=== PATIENT | male | born 1935 | race Caucasian/White ===

== ENCOUNTER 2020-05-09 18:44 | Inpatient (IN) | payer OTHER ==
[~2020-05-09] VITALS: Ht 172.7 cm; Wt 77.1 kg
[2020-05-09 19:19] LABS: Basophils # (auto) 0.1 10 ^3/uL (0-0.2); Basophils % (auto) 0.9 % (0.0-2.0); Eosinophils # (auto) 0.4 10 ^3/uL (0-0.8); Hemoglobin 11.1 g/dL (13.5-17.5); Mean Corpuscular Hemoglobin 34.5 pg (28.0-32.0); White Blood Cell 8.3 10^3/uL (4.4-10.8)
[2020-05-09 19:21] LABS: Eosinophils % (auto) 4.4 % (0.0-7.0); Hematocrit 32.5 % (41.0-53.0); Lymphocytes # (auto) 1.6 10 ^3/uL (0.4-5.4); Lymphocytes % (auto) 18.6 % (10.0-50.0); Mean Corpuscular Volume 101.4 fL (80.0-100.0); Monocytes # (auto) 0.9 10 ^3/uL (0-1.3); Monocytes % (auto) 11.3 % (0.0-12.0); Neutrophils # (auto) 5.4 10 ^3/uL (1.6-8.6); Neutrophils % (auto) 64.8 % (37.0-80.0); Nucleated Red Blood Cells % 0.2 %; Platelet Count (auto) 251 10^3/uL (140-450); Red Blood Cells 3.21 10^6/uL (4.5-5.90); Red Cell Distribution Width 17.1 % (11.8-14.3)
[2020-05-09] MEDS ORDERED: SODIUM CHLORIDE 0.9% 1,000 ML IVB ONE (20:00)
[2020-05-09 20:09] LABS: Albumin 3.3 g/dL (3.4-5.0); Anion Gap 3 (5-15); Blood Urea Nitrogen 20 mg/dL (7-18); Calcium 8.3 mg/dL (8.5-10.1); Carbon Dioxide 30 mmol/L (21-32); Chloride 107 mmol/L (98-107); Glucose 89 mg/dL (74-106); Potassium 4.2 mmol/L (3.5-5.1); Sodium 140 mmol/L (136-145)
[2020-05-09 20:17] LABS: Alanine Aminotransferase 17 U/L (16-61); Alkaline Phosphatase 64 U/L (45-117); Aspartate Aminotransferase 12 U/L (15-37); BUN/Creatinine Ratio 17.9; Bilirubin, Total 0.5 mg/dL (0.2-1.0); Blood Alcohol < 3.0 mg/dL (0-5); GFR African American 80 mL/min; GFR Non-African American 66 mL/min; Total Protein 6.6 g/dL (6.4-8.2)
[2020-05-09 20:32] LABS: INR 1.06 (0.9-1.15); Partial Thromboplastin Time 28.7 sec (23.0-31.2)
[2020-05-10 03:26] LABS: Urine Bacteria FEW /hpf (None Seen); Urine Blood Negative /uL (Negative); Urine Mucus FEW (None Seen); Urine Specific Gravity 1.021 (1.001-1.035); Urine WBC 2 /hpf (0 - 3)
[2020-05-10] MEDS ORDERED: HYDROcodone-ACET 5/325MG TAB PO PRN (09:00)
[2020-05-10] MEDS ORDERED: MORPHINE SULF INJ 2 MG/ML SYRINGE 1ML IV PRN (09:00)
[2020-05-10] MEDS ORDERED: ACETAMINOPHEN 500 MG TAB PO PRN (09:00)
[2020-05-10] MEDS ORDERED: ONDANSETRON HCL 4 MG/2 ML VIAL IV PRN (09:00)
[2020-05-10] MEDS ORDERED: NITROGLYCERIN 0.4 MG SL TAB SL PRN (09:00)
[2020-05-10] MEDS ORDERED: DOCUSATE SOD 100 MG CAP PO PRN (09:00)
[2020-05-10] MEDS: FAMOTIDINE 20 MG TAB PO SCH (09:54)
[2020-05-10 13:46] LABS: Cholesterol 111 mg/dL (< 200); Triglycerides 74 mg/dL (< 150)
[2020-05-10 13:47] LABS: HDL Cholesterol 43 mg/dL (40-59); LDL Cholesterol 70 mg/dL (< 100)
[2020-05-10 14:00] VITALS: BP 162/68
[2020-05-10 14:59] LABS: Folate (Folic Acid) 10.69 ng/mL (5.38-24)
[2020-05-10 15:43] VITALS: BP 120/64
[2020-05-10 17:26] VITALS: BP 131/64
[2020-05-10] MEDS: TAMSULOSIN HYDROCHLORIDE 0.4 MG CAP PO SCH (17:57)
[2020-05-10 18:26] VITALS: BP 156/69
[2020-05-10 19:42] VITALS: BP 136/72
[2020-05-10 20:51] VITALS: BP 151/79
[2020-05-10] MEDS: ATORVASTATIN 20 MG TAB PO SCH (22:41)
[2020-05-11] VITALS (7 sets, daily range): BP systolic 109–162; BP diastolic 60–81
[2020-05-11 04:34] LABS: Basophils # (auto) 0.1 10 ^3/uL (0-0.2); Eosinophils # (auto) 0.3 10 ^3/uL (0-0.8); Eosinophils % (auto) 3.6 % (0.0-7.0); Hematocrit 31.1 % (41.0-53.0); Hemoglobin 10.5 g/dL (13.5-17.5); Lymphocytes # (auto) 1.1 10 ^3/uL (0.4-5.4); Lymphocytes % (auto) 14.8 % (10.0-50.0); Mean Corpuscular Hemoglobin 34.3 pg (28.0-32.0); Mean Corpuscular Hgb Conc. 33.8 g/dL (32.0-36.0); Mean Corpuscular Volume 101.7 fL (80.0-100.0); Monocytes # (auto) 0.8 10 ^3/uL (0-1.3); Monocytes % (auto) 11.4 % (0.0-12.0); Neutrophils # (auto) 4.9 10 ^3/uL (1.6-8.6); Neutrophils % (auto) 69.2 % (37.0-80.0); Nucleated Red Blood Cells % 0.3 %; Platelet Count (auto) 245 10^3/uL (140-450); Red Blood Cells 3.06 10^6/uL (4.5-5.90); Red Cell Distribution Width 16.6 % (11.8-14.3); White Blood Cell 7.1 10^3/uL (4.4-10.8)
[2020-05-11] MEDS: MORPHINE SULF INJ 2 MG/ML SYRINGE 1ML IV PRN ×3 (04:55→21:59)
[2020-05-11 05:06] LABS: Potassium 3.7 mmol/L (3.5-5.1)
[2020-05-11 05:18] LABS: BUN/Creatinine Ratio 21.5; Bilirubin, Total 0.7 mg/dL (0.2-1.0); Calcium 8.2 mg/dL (8.5-10.1); Total Protein 6.2 g/dL (6.4-8.2)
[2020-05-11] MEDS: FAMOTIDINE 20 MG TAB PO SCH (09:58)
[2020-05-11] MEDS ORDERED: LISINOPRIL 10 MG TAB PO ONE (12:45)
[2020-05-11] MEDS ORDERED: hydrALAZINE HCL 20 MG/ML VL IV PRN (12:45)
[2020-05-11] MEDS: TAMSULOSIN HYDROCHLORIDE 0.4 MG CAP PO SCH (17:59)
[2020-05-11] MEDS: ATORVASTATIN 20 MG TAB PO SCH (21:58)
[2020-05-12 05:00] VITALS: BP 153/80
[2020-05-12] MEDS: MORPHINE SULF INJ 2 MG/ML SYRINGE 1ML IV PRN ×2 (05:09→09:30)
[2020-05-12] MEDS: GABAPENTIN 300 MG CAP PO SCH ×2 (06:50→14:00)
[2020-05-12 08:06] LABS: Immunoglobulin G, Serum 954 mg/dL (603-1613)
[2020-05-12 09:20] VITALS: BP 159/85
[2020-05-12] MEDS: FAMOTIDINE 20 MG TAB PO SCH (09:29)
[2020-05-12] MEDS ORDERED: LISINOPRIL 10 MG TAB PO SCH (10:00)
== END 2020-05-12 15:05 | disposition home health service (06) | DRG 71 ==
LOC: EDBD 18:44 → ER 18:50 → EDBD 18:50 → TELE 18:51 → CATH ICU 05-10 20:34 → TELE-WESTW 05-11 04:45
PROVIDERS: ADMIT Nurse Practitioner Acute Care; ATTEND Internal Medicine Geriatric Medicine
DX: G93.41 Metabolic encephalopathy (principal); G45.9 Transient cerebral ischemic attack, unspecified; R29.6 Repeated falls; D64.9 Anemia, unspecified; N18.30 Chronic kidney disease, stage 3 unspecified; E78.5 Hyperlipidemia, unspecified; G62.9 Polyneuropathy, unspecified; F17.200 Nicotine dependence, unspecified, uncomplicated; I12.9 Hypertensive chronic kidney disease with stage 1 through stage 4 chronic kidney disease, or unspecified chronic kidney disease; I73.9 Peripheral vascular disease, unspecified; F03.90 Unspecified dementia, unspecified severity, without behavioral disturbance, psychotic disturbance, mood disturbance, and anxiety; N40.0 Benign prostatic hyperplasia without lower urinary tract symptoms; Z20.828 Contact with and (suspected) exposure to other viral communicable diseases; Z82.0 Family history of epilepsy and other diseases of the nervous system; Z96.643 Presence of artificial hip joint, bilateral
CPT/HCPCS: 36415; 70450; 71045; 80053; 80061; 80320; 81001; 82306; 82607; 82746; 82784; 83036; 83735; 84425; 84443; 84484; 85025; 85610; 85730; 86334; 93005; 93886; 93970; 96360; 97163; G0378